=== PATIENT | female | born 1975 | race Two or more races ===

== ENCOUNTER → 2020-01-17 | Outpatient (CLI) | payer OTHER ==
[2020-01-17 12:03] LABS: ABSOLUTE EOSINOPHILS # (AUTO) 0.1 10^3/uL (0.0-0.6); ABSOLUTE LYMPHOCYTES (AUTO) 2.1 10^3/uL (0.5-4.7); ABSOLUTE MONOCYTES (AUTO) 0.4 10^3/uL (0.1-1.4); ABSOLUTE NEUT (AUTO) 2.6 10^3/uL (1.7-8.2); BASOPHILS % (AUTO) 0.7 % (0-2); EOSINOPHILS % (AUTO) 1.4 % (0-6); HEMATOCRIT 46.9 % (36.0-47.0); HEMOGLOBIN 15.9 g/dL (12.0-15.5); LYMPHOCYTES % (AUTO) 40.9 % (13-45); MEAN CORPUSCULAR HEMOGLOBIN 30.5 pg (27.0-33.4); MEAN CORPUSCULAR VOLUME 90 fl (80-97); MONOCYTES % (AUTO) 7.5 % (3-13); PLATELET COUNT 240 10^3/uL (150-450); RED BLOOD COUNT 5.22 10^6/uL (3.72-5.28); RED CELL DISTRIBUTION WIDTH 13.2 % (11.5-14.0); SEGMENTED NEUTROPHILS % (AUTO) 49.5 % (42-78); TOTAL CELLS COUNTED % (AUTO) 100 %; WHITE BLOOD COUNT 5.2 10^3/uL (4.0-10.5)
[2020-01-17 12:25] LABS: ALBUMIN 4.6 g/dL (3.5-5.0); ALKALINE PHOSPHATASE 107 U/L (38-126); ANION GAP 14 (5-19); ASPARTATE AMINO TRANSFERASE 27 U/L (14-36); BILIRUBIN,DIRECT 0.3 mg/dL (0.0-0.4); BILIRUBIN,TOTAL 0.9 mg/dL (0.2-1.3); BLOOD UREA NITROGEN 15 mg/dL (7-20); CALCIUM 9.7 mg/dL (8.4-10.2); CARBON DIOXIDE 26 mmol/L (22-30); CHLORIDE 96 mmol/L (98-107); GLUCOSE 376 mg/dL (75-110); POTASSIUM 4.1 mmol/L (3.6-5.0); TOTAL PROTEIN 8.2 g/dL (6.3-8.2); TRIGLYCERIDES 348 mg/dL (<150)
[2020-01-17 12:36] LABS: DIRECT LDL 158 mg/dL (<100)
[2020-01-17 12:39] LABS: VLDL CHOLESTEROL 69.6 mg/dL (10-31)
[2020-01-19 03:36] LABS: CREATININE URINE 50.8 mg/dL (Not Estab.); MICROALBUMIN URINE 143.6 ug/mL (Not Estab.)
== END ==
LOC: OD 10:16
PROVIDERS: ATTEND Family Medicine Geriatric Medicine
DX: E11.9 Type 2 diabetes mellitus without complications (principal); E66.3 Overweight; Z79.899 Other long term (current) drug therapy
CPT/HCPCS: 36415; 80053; 80061; 82043; 82570; 83036; 84443; 84681; 85025

== ENCOUNTER 2020-02-09 10:48 | Emergency (ER) | payer OTHER ==
[2020-02-09] MEDS ORDERED: NORMAL SALINE 1000 ML 1,000 ML IV ONE (12:10)
--- NOTE | 2020-02-09 12:15 | ER Document Report ---
ED Medical Screen (RME) - General Chief Complaint: Cough Stated Complaint: COUGH/COVID+ Time Seen by Provider: 02/09/20 12:03 Primary Care Provider: ITA CHAUDHRY MD [Primary Care Provider] - Follow up as needed Mode of Arrival: Ambulatory Information source: Patient Notes: Normal exam clinically looking a complete emergency room complaining of mild hemoptysis 30th morning. Patient also states that she is been diagnosed Covid positive on . He states her had all the signs and symptoms prior to them being tested she had no real symptoms at all and came back positive. She states she is not really ready been any fever she has had just a dry hacking cough until this morning when she was able to produce a phlegm that has some small particles of what appeared to be blood in it. On arrival to emergency room patient temp was 100.4. Was short-lived and was able to walk to the exam room. Patient vital signs showed a temp of 100.7 as stated heart rate of 102 bpm pressure 148/74 respiratory rate of 16 and O2 saturation 90% on room air. Physical examination: Patient is a well-nourished well-developed 42-year-old female no apparent distress on examination today. Cardiac: As stated tachycardic rate was noted to 102 bpm on monitor there was no murmur auscultated on examination chest. Lungs: Bilateral breath sounds breath sounds decreased throughout no rhonchi rales or wheezes auscultated. Abd. Bowel sounds in all four quads. None tender to palpate. HEENT: Examination patient's oropharynx shows some mild erythema throughout no exudate is noted at this time there is no deviation of the uvula and airways patent currently. I have greeted and performed a rapid initial assessment of this patient. A comprehensive ED assessment and evaluation of the patient, analysis of test results and completion of the medical decision making process will be conducted by additional ED providers. Dictation of this chart was performed using voice recognition software; therefore, there may be some unintended grammatical errors. - Related Data Allergies/Adverse Reactions: shellfish derived Allergy (Verified 02/09/20 12:05) Past Medical History Endocrine Medical History: Reports: Hx Diabetes Mellitus Type 2 Physical Exam - Vital signs Vitals: Temp Pulse Resp BP Pulse Ox 100.7 F H 102 H 16 148/94 H 98 02/09/20 10:50 02/09/20 10:50 02/09/20 10:50 02/09/20 10:50 02/09/20 10:50 Course - Vital Signs Vital signs: Temp Pulse Resp BP Pulse Ox 100.7 F H 102 H 16 148/94 H 98 02/09/20 10:50 02/09/20 10:50 02/09/20 10:50 02/09/20 10:50 02/09/20 10:50 Doctor's Discharge - Discharge Referrals: ITA CHAUDHRY MD [Primary Care Provider] - Follow up as needed
[2020-02-09 13:57] LABS: ABSOLUTE LYMPHOCYTES (AUTO) 1.5 10^3/uL (0.5-4.7); ABSOLUTE MONOCYTES (AUTO) 0.6 10^3/uL (0.1-1.4); BASOPHILS % (AUTO) 0.4 % (0-2); HEMATOCRIT 44.3 % (36.0-47.0); HEMOGLOBIN 14.9 g/dL (12.0-15.5); LYMPHOCYTES % (AUTO) 18.2 % (13-45); MEAN CORPUSCULAR HEMOGLOBIN 30.1 pg (27.0-33.4); MEAN CORPUSCULAR HGB CONC 33.7 g/dL (32.0-36.0); MEAN CORPUSCULAR VOLUME 89 fl (80-97); MONOCYTES % (AUTO) 7.1 % (3-13); PLATELET COUNT 174 10^3/uL (150-450); RED BLOOD COUNT 4.95 10^6/uL (3.72-5.28); SEGMENTED NEUTROPHILS % (AUTO) 74.3 % (42-78); TOTAL CELLS COUNTED % (AUTO) 100 %
[2020-02-09 14:16] LABS: APPEARANCE,URINE CLOUDY; BILIRUBIN,URINE NEGATIVE (NEGATIVE); COLOR,URINE YELLOW; GLUCOSE, URINE >=500 mg/dL (NEGATIVE); KETONES,URINE 20 mg/dL (NEGATIVE); LEUKOCYTE ESTERASE,URINE MODERATE (NEGATIVE); NITRITE,URINE POSITIVE (NEGATIVE); PROTEIN,URINE 100 mg/dL (NEGATIVE); URINE SPECIFIC GRAVITY 1.032; UROBILINOGEN,URINE NEGATIVE mg/dL (<2.0)
[2020-02-09 14:19] LABS: ALBUMIN 4.2 g/dL (3.5-5.0); ALKALINE PHOSPHATASE 92 U/L (38-126); ANION GAP 11 (5-19); ASPARTATE AMINO TRANSFERASE 28 U/L (14-36); BILIRUBIN,DIRECT 0.2 mg/dL (0.0-0.4); BLOOD UREA NITROGEN 9 mg/dL (7-20); CALCIUM 9.4 mg/dL (8.4-10.2); CARBON DIOXIDE 30 mmol/L (22-30); CHLORIDE 93 mmol/L (98-107); TOTAL PROTEIN 7.9 g/dL (6.3-8.2)
[2020-02-09 14:29] LABS: GLUCOSE 405 mg/dL (75-110)
[2020-02-09] MEDS ORDERED: ACETAMINOPHEN 325 MG TABLET PO ONE (16:18)
[2020-02-09] MEDS ORDERED: CEFTRIAXONE 1 GM/D5W RTU 1 GM/50 ML RTUPB IV ONE (16:39)
[2020-02-09] MEDS ORDERED: INSULIN REG, HUMAN 100 UNIT/ML 3 ML VIAL (PYX) SUBCUT ONE (16:41)
--- NOTE | 2020-02-09 17:11 | RADIOLOGY REPORT (SQ) ---
EXAM DESCRIPTION: CHEST SINGLE VIEW IMAGES COMPLETED DATE/TIME: 02/09/2020 1:59 pm REASON FOR STUDY: cough. Covid Pos COMPARISON: None. EXAM PARAMETERS: NUMBER OF VIEWS: One view. TECHNIQUE: Single frontal radiographic view of the chest acquired. RADIATION DOSE: NA LIMITATIONS: None. FINDINGS: LUNGS AND PLEURA: Faint opacities in the right mid lung suspicious for pneumonia. No pleu ral effusion or pneumothorax. MEDIASTINUM AND HILAR STRUCTURES: No masses. Contour normal. HEART AND VASCULAR STRUCTURES: Heart normal in size. Normal vasculature. BONES: No acute findings. HARDWARE: None in the chest. OTHER: No other significant finding. IMPRESSION: Faint right mid lung opacities suspicious for pneumonia. TECHNICAL DOCUMENTATION: JOB ID: [id number] [employer]- All Rights Reserved Reading location - IP/workstation name: [email or web address]
--- NOTE | 2020-02-09 18:50 | ER Document Report ---
ED Respiratory Problem - General Chief Complaint: Cough Stated Complaint: COUGH Time Seen by Provider: 02/09/20 12:03 Primary Care Provider: ITA CHAUDHRY MD [Primary Care Provider] - Follow up as needed Mode of Arrival: Ambulatory Information source: Patient Notes: Patient is a 45-year-old female comes emergency room where I triage earlier. Her major complaint was increasing shortness of breath. Patient tested positive for the coronavirus on . As when she got her results. Patient states that she had no real symptoms then even though she had it until her who had all the symptoms was diagnosed and they did her just because. She came back positive and the reason she is here today is because she has felt a little rundown and this morning she has had a dry hacking cough but this morning she coughed up a little bit of phlegm with some reddish spots in it and she was concerned that she was having some blood. She denies any other symptoms at this time. Patient does have a history of diabetes. She also tells me that she went to her primary care provider here about a week or so ago and was put back on medications and have prescription form but then she got sick and she has not mailed to get them filled yet. According to her he placed her back on Lantus and on Metformin. But again she has not started it. Patient denies any nausea vomiting diarrhea or dysuria. Patient denies any history of smoking. - HPI Patient complains to provider of: Cough, Short of breath. No: Chest pain Onset: This morning Duration: Better Initiating Event: URI Quality of pain: Achy Severity: Moderate Pain Level: 3 Context: denies: Smoker Short of Breath: Mild Chest pain/discomfort: Constant Cough: Productive Sputum amount: Scant Sputum color: Red Specks Sputum consistency: Thick Associated symptoms: Fever, Runny nose Similar symptoms previously: Yes Recently seen / treated by doctor: No - Related Data Allergies/Adverse Reactions: shellfish derived Allergy (Verified 02/09/20 12:05) Past Medical History - Social History Smoking Status: Never Smoker Cigarette use (# per day): No Chew tobacco use (# tins/day): No Smoking Education Provided: No Frequency of alcohol use: None Drug Abuse: None Lives with: Family Family History: Reviewed & Not Pertinent Endocrine Medical History: Reports: Hx Diabetes Mellitus Type 2 Review of Systems - Review of Systems Constitutional: Fever EENT: Nose congestion, Difficulty swallowing Cardiovascular: No symptoms reported Respiratory: Hemoptysis, Short of breath Gastrointestinal: No symptoms reported Genitourinary: No symptoms reported Female Genitourinary: No symptoms reported Musculoskeletal: No symptoms reported Skin: No symptoms reported Hematologic/Lymphatic: No symptoms reported Neurological/Psychological: No symptoms reported -: Yes All other systems reviewed and negative Physical Exam - Vital signs Vitals: Temp Pulse Resp BP Pulse Ox 100.7 F H 102 H 16 148/94 H 98 02/09/20 10:50 02/09/20 10:50 02/09/20 10:50 02/09/20 10:50 02/09/20 10:50 Interpretation: Hypertensive, Tachycardic, Febrile - Notes Notes: PHYSICAL EXAMINATION: GENERAL: Well-appearing, well-nourished and in no acute distress. HEAD: Atraumatic, normocephalic. EYES: Pupils equal round and reactive to light, extraocular movements intact, conjunctiva are normal. ENT: Examination patient's head and upper airway show nasal mucosa be mildly erythematous and edematous with some mild clear rhinorrhea noted. Bilateral nasal congestion is also noted. No frontal or maxillary sinus tenderness to palpation. Examination posterior pharynx shows some mild drainage yellowish in color uvula is midline no encroachment and no deviation. Airways patent. NECK: Normal range of motion, supple without lymphadenopathy LUNGS: Auscultation patient's lungs show she has bilateral breath sounds they are increased throughout no rhonchi rales or wheeze are auscultated. HEART: Slightly tachycardic rate 102 bpm and rhythm without murmurs ABDOMEN: Soft, nontender, nondistended abdomen. No guarding, no rebound. No masses appreciated. Female : deferred Musculoskeletal: Normal range of motion, no pitting or edema. No cyanosis. NEUROLOGICAL: . Normal speech, normal gait. Normal sensory, motor exams PSYCH: Normal mood, normal affect. SKIN: Warm, Dry, normal turgor, no rashes or lesions noted. Course - Re-evaluation Re-evalutation: 02/09/20 19:00 Patient was found to have an elevated glucose at 405 and she was also found to have large urinary tract infection with sugar spilled over into the urine. Patient was positive for nitrites as well. So given that we will be placing patient on Keflex and she has prescriptions written for her by her primary care provider for her hyper glycemic medications. So she will pick those up tomorrow. We have given patient a small dose of insulin since she is not used to taking it she is more insulin keon so the 5 mg with a liter of fluids has a trending down to 308 at last check. Patient feels much improved. Patient was ambulated did not drop her sats below 93% and feels good. Given these findings we will discharge patient home at this time. She has follow-up with her primary care provider. Patient's chest x-ray also came back showing that she has faint right midlung opacity suspicious for pneumonia. Given all this information I went discussed the case with Dr. Turner informed him of patient's sugar level informed him that she also has a pneumonia but she is also Covid positive so he is having me write patient for Zithromax, Keflex to cover for the urinary tract infection I want to be put on a couple of days of dexamethasone 4 mg for 3 days and have her take ivermectin 3 g a day along with vitamin D and I am writing her for a Diflucan pill. I talked with patient she is going to get all of her medications tonight and will start them then. 02/09/20 19:17 - Vital Signs Vital signs: Temp Pulse Resp BP Pulse Ox 100.7 F H 102 H 16 148/94 H 98 02/09/20 10:50 02/09/20 10:50 02/09/20 10:50 02/09/20 10:50 02/09/20 10:50 - Laboratory Results Result Diagrams: 02/09/20 13:20 02/09/20 13:20 Laboratory Results Interpreted: 02/09/20 02/09/20 02/09/20 13:20 13:20 17:48 Sodium 134.4 L Chloride 93 L Glucose 405 H* POC Glucose 308 H Urine Protein 100 H Urine Glucose (UA) >=500 H Urine Ketones 20 H Urine Nitrite POSITIVE H Ur Leukocyte Esterase MODERATE H Critical Laboratory Results Reviewed: Yes Attending or Supervising Physician who Reviewed Labs: ALEKS TURNER JR - Positive UA with nitrites hyperglycemia - Radiology Results Critical Radiology Results Reviewed: No Critical Results Discharge - Discharge Clinical Impression: Hyperosmolar hyperglycemic state ([facility]), COVID-19 UTI (urinary tract infection) Qualifiers: Urinary tract infection type: site unspecified Hematuria presence: without hematuria Qualified Code(s): N39.0 - Urinary tract infection, site not specified Condition: Stable Disposition: HOME, SELF-CARE Instructions: COVID-19 Guidance for Persons Under Investigation, Cephalexin ([facility]), Urinary Tract Infection ([facility]), Pneumonia ([facility]), Viral Pneumonia ([facility]), Hyperglycemia ([facility]) Additional Instructions: As we discussed you are sick little patient you have the coronavirus, you have areas that appear to be bacterial lung infection or a viral lung infection you also have a major urinary tract infection and you have hyperglycemia or your sugars are out of normal range. We discussed that you will need to have your hyperglycemic medications started as soon as possible that your primary wrote for you last week. I am placing you on the antibiotics 1 for the pneumonia and one for your urinary tract infection and I am writing you a Diflucan pill to he lp alleviate the symptoms of a yeast infection. Also my attending Dr. Turner wants me to have you buy some [id number] vitamin D and take it daily as well as Pepcid/famotidine and take that twice a day [id number]. Vitamin a is also highly recommended and I am also writing you for another medication that is showing promise and it will be on your prescriptions. Should you have any de oneill in function or increasing shortness of breath please do not hesitate to return to ER for reevaluation. Prescriptions: Fluconazole [Diflucan] 150 mg PO ASDIR #2 tablet Cephalexin Monohydrate [Keflex 500 mg Capsule] 500 mg PO TID #21 capsule Methylprednisolone [Medrol 4 Mg Tablet] 4 mg PO DAILY #4 tablet Albuterol Sulfate [Proair HFA Inhalation Aerosol 8.5 gm MDI] 2 puff IH Q4H PRN #1 mdi PRN Reason: Ivermectin [Stromectol 3 mg Tablet] 3 mg PO DAILY #7 tablet Azithromycin [Zithromax 250 mg Tablet] 250 mg PO ASDIR PRN #6 tablet PRN Reason: Forms: Elevated Blood Pressure Referrals: ITA CHAUDHRY MD [Primary Care Provider] - Follow up as needed
[2020-02-09 18:52] LABS: VENOUS BLOOD BASE EXCESS 1.6 mmol/L; VENOUS BLOOD HCO3 26.3 mmol/L (20-32); VENOUS BLOOD PCO2 41.8 mmHg (35-63); VENOUS BLOOD PH 7.42 (7.30-7.42)
[2020-02-09 19:57] VITALS: BP 116/81
== END 2020-02-09 19:57 | disposition home or self-care (01) ==
LOC: ER 10:48
DX: U07.1 COVID-19 (principal); E11.00 Type 2 diabetes mellitus with hyperosmolarity without nonketotic hyperglycemic-hyperosmolar coma (NKHHC); N39.0 Urinary tract infection, site not specified; R05 Cough; R06.02 Shortness of breath
CPT/HCPCS: 99284; 96372; 96365; 36415; 87070; 87086; 87880; 82962; 85025; 81025; 87088; 80053; 81001; 82803; 71045; J1815; J7030; J0696; 87186